=== PATIENT | female | born 1990 | race African-American/Black ===

== ENCOUNTER 2021-09-05 22:49 | Emergency (ER) | payer OTHER ==
[~2021-09-05] VITALS: Ht 165.1 cm; Wt 82.0 kg
[2021-09-05] MEDS ORDERED: ALBUTEROL (0.083%) 2.5MG/3ML NEB HHN STA (23:20)
[2021-09-05] MEDS ORDERED: PREDNISONE 20MG TABLET PO STA (23:20)
[2021-09-06] MEDS ORDERED: ALBU6.7H9 INH (01:16)
[2021-09-06] MEDS ORDERED: P50 MT (01:17)
[2021-09-06] MEDS ORDERED: ALBUTEROL (0.083%) 2.5MG/3ML NEB HHN ONE (02:00)
[2021-09-06 02:30] VITALS: BP 117/70
== END 2021-09-06 02:50 | disposition home or self-care (01) ==
LOC: ER 22:49
DX: J45.901 Unspecified asthma with (acute) exacerbation (principal)
CPT/HCPCS: 71045; 93005; 94640; 99284; J7512; Z7610